=== PATIENT | female | born 1980 | race Two or more races ===

== ENCOUNTER 2018-12-24 17:28 | Inpatient (IN) | payer BC, MEDICAID, OTHER ==
[~2018-12-24] VITALS: Ht 161.3 cm; Wt 59.4 kg
[2018-12-29 08:07] VITALS: BP 104/72
== END 2018-12-29 13:09 | disposition short-term general hospital (02) | DRG 64 ==
LOC: ED 18:16 → EDIP 18:17 → ED 18:30 → 4WST 19:22 → DCLOUNGE 12-29 12:55
PROVIDERS: ADMIT Internal Medicine; ATTEND Internal Medicine
DX: I63.9 Cerebral infarction, unspecified (principal); D61.810 Antineoplastic chemotherapy induced pancytopenia; D50.9 Iron deficiency anemia, unspecified; E89.0 Postprocedural hypothyroidism; C50.912 Malignant neoplasm of unspecified site of left female breast; T45.1X5A Adverse effect of antineoplastic and immunosuppressive drugs, initial encounter; R47.81 Slurred speech; R47.01 Aphasia; G83.24 Monoplegia of upper limb affecting left nondominant side; R29.706 NIHSS score 6; Z85.850 Personal history of malignant neoplasm of thyroid
CPT/HCPCS: 0399T; 36415; 70498; 80053; 80061; 82728; 83540; 83550; 83880; 85025; 93005; 93306; 93880; 99285; G0378; Q9967; 92523-GN